=== PATIENT | female | born 1975 | race Caucasian/White ===

== ENCOUNTER 2020-03-12 12:35 | Outpatient (NON) | payer BC, SELFPAY ==
[2020-03-12 21:33] LABS: SARS-CoV-2 RNA PCR Positive
== END 2020-03-12 12:36 ==
LOC: ANHCOVIDDT 12:36
PROVIDERS: PCP Internal Medicine; Visit Provider Nurse Practitioner Family
DX: U07.1 COVID-19 (principal); R68.89 Other general symptoms and signs
CPT/HCPCS: 87635; C9803; U0003

== ENCOUNTER → 2020-07-12 10:36 | Outpatient (CLI) | payer BC, SELFPAY ==
--- NOTE | ~2020-07-12 | XR_ITS ---
EXAMINATION: XR chest 2V 07/12/2020 10:58 INDICATION: Chest pain PROCEDURE: 2 view chest COMPARISON: No prior studies for comparison. FINDINGS: The lungs are clear. The cardiomediastinal silhouette is within normal limits. There are no pleural effusions. There is no pneumothorax suspected. IMPRESSION: 1: NO ACUTE CARDIOPULMONARY DISEASE. Reviewed, dictated and finalized at location [facility].
== END ==
PROVIDERS: PCP Family Medicine; Visit Provider Nurse Practitioner Family
DX: R07.89 Other chest pain (principal)
CPT/HCPCS: 71046

== ENCOUNTER 2020-07-17 14:49 | Outpatient (CLI) | payer BC, SELFPAY ==
--- NOTE | 2020-07-20 12:32 | WPDHOLTEREM ---
Holter/Event Monitor Holter/Event Monitor Date of procedure: 07/17/20 Procedure Type: 48 hour holter monitor Indications: Palpitations Conclusion: 1. 48 hour holter monitor on 07/17/20. 2. Predominant rhythm is sinus rhythm. HR range 51-162 bpm; average HR 83 bpm. 3. There is 1 premature supraventricular complex. There is 1 atrial tachycardia at 160 bpm lasting 6 beats. 4. No premature ventricular complex. No ventricular tachycardia. 5. No sinoatrial or atrioventricular blocks. No significant pauses greater than 2 seconds. 6. No symptoms available for correlation.
== END 2020-07-17 14:50 | disposition home or self-care (01) ==
LOC: ANHCARD 14:50
PROVIDERS: PCP Family Medicine; Visit Provider Nurse Practitioner Family
DX: R00.2 Palpitations (principal); R00.0 Tachycardia, unspecified
CPT/HCPCS: 93225; 93226

== ENCOUNTER 2022-10-02 12:33 | Emergency (ER) | payer BC, SELFPAY ==
--- NOTE | ~2022-10-02 | CT_ITS ---
EXAMINATION: CT abdomen pelvis w con DATE: 10/02/2022 15:51 INDICATION: Right lower quadrant abdominal pain. Vomiting. TECHNIQUE: Computed tomography (CT) of the abdomen and pelvis was performed with 100 CC Omnipaque 350 intravenous contrast. Automated exposure control and iterative reconstruction technique were employe d. Exam dose: 1163.95 mGy-cm total exam DLP. COMPARISON: May 09, 2008 CT abdomen FINDINGS: There are clear. Normal heart size. No pericardial or pleural effusion. Small sliding hiatal hernia. There is a lap band. Approximately 1 cm lateral segment left hepatic cyst. Approximately 3.8 mm hypodensity of the right hepatic lobe lateral to the gallbladder, too small to d efinitively characterize but likely a small hepatic cyst a couple of even smaller probable hepatic cy sts are suggested. The gallbladder appears normal. No bile duct or pancreatic duct enlargement. No pancreatic mass lesio n or calcification. Normal splenic size. Normal morphology of the adrenal glands. A few benign-appearing renal cysts are noted, measuring up to 8 mm on the right and 19 mm on the left . No urinary tract calculus or hydroureteronephrosis. The urinary bladder appears normal. There is an I UD in expected position in the uterus. Approximately 3.1 x 4.7 cm multi septated left ovarian cyst and 1.5 x 3.7 cm left ovarian cyst. There is epiploic appendagitis near the junction of the descending and sigmoid colon in the left lowe r quadrant. There are multiple contiguous nondilated fluid containing small bowel segments without intervening fa t in the right lower quadrant, but no bowel obstruction or intraperitoneal free air is evident. Small fat-containing umbilical hernia. No suspicious osteolytic or osteoblastic lesions. IMPRESSION: Small sliding hiatal hernia Lap band Hepatic cysts Renal cysts Left ovarian cysts IUD within uterus Left colon epiploic appendagitis No bowel obstruction or intraperitoneal free air is detected Reviewed, dictated and finalized at [facility]. Reviewed, dictated and finalized at location [facility].
[2022-10-02 12:47] VITALS: BP 147/83; PULSE 68; RESP 20; TEMP 36.7; O2SAT 100
[2022-10-02 13:05] LABS: Basophils Percent Auto 0.5 % (0.2-1.2); Eosinophils Percent Auto 0.5 % (0-4.4); Hematocrit 42.4 % (37.0-47.0); Immature Granulocyte Absolute 0.03 K/mm3 (0.00-0.031); Immature Granulocyte Percent A 0.4 % (0-0.5); Lymphocytes Absolute Auto 2.28 K/mm3 (0.9-3.2); Lymphocytes Percent Auto 28.9 % (18.3-44.2); Mean Corpuscular Volume 93.8 fl (80-100); Mean Platelet Volume 9.9 fl (7.4-10.4); Monocytes Absolute Auto 0.4 K/mm3 (0.1-0.6); Monocytes Percent Auto 5.4 % (2.6-8.5); Neutrophils Absolute Auto 5.1 K/mm3 (1.3-6.7); Neutrophils Percent Auto 64.3 % (45.5-73.1); Platelet Count Result 303 k/mm3 (150-375); Red Blood Count 4.52 M/mm3 (4.2-5.4); Red Cell Distribution Width 12.9 % (11.5-14.5); White Blood Count 7.9 K/mm3 (4.5-10.0)
[2022-10-02 13:12] LABS: Alanine Aminotransferase 30 U/L (6-35); Albumin Level 4.3 g/dL (3.5-5.1); Alkaline Phosphatase 93 U/L (38-126); Anion Gap 4 mmol/L (8-16); Aspartate Amino Transferase 28 U/L (14-36); Bilirubin,Total 0.7 mg/dL (0.2-1.3); Blood Urea Nitrogen 8 mg/dL (7-17); Calcium 8.8 mg/dL (8.4-10.2); Carbon Dioxide 29 mmol/L (22-30); Chloride 103 mmol/L (98-107); Estimated CRCL calculation 100 ml/min; Estimated Glomerular Filt Rate > 60; Glucose 92 mg/dL (65-110); Lipase 44 U/L (23-300); Potassium 4.2 mmol/L (3.4-5.0); Sodium 136 mmol/L (137-145)
[2022-10-02 14:02] VITALS: BP 119/89; O2SAT 100
[2022-10-02 14:54] LABS: Appearance Urine Cloudy (Clear); Bacteria Urine 2+ /hpf; Bilirubin Urine Negative (Negative); Blood Urine Negative (Negative); Color Urine Yellow (Yellow); Glucose Urine UA Negative (Negative); Hyaline Casts Urine Present /lpf; Ketones Urine 2+ mg/dL (Negative); Leukocyte Esterase Ur Negative LEU/UL (Negative); Need Manual Microscopic Reviewed; Nitrate Urine Negative (Negative); Protein Urine Trace mg/dL (Negative); Specific Grav Ur 1.023 (1.001-1.035); Squamous Epithelial Cell Urine Few /hpf (Few)
[2022-10-02 15:01] VITALS: BP 136/59; O2SAT 100
[2022-10-02 15:06] LABS: Add Urine Microscopic? YES
[2022-10-02 15:16] VITALS: BP 134/77; O2SAT 100
--- NOTE | 2022-10-02 17:36 | ED.ABDPAIN ---
HPI - Abdominal Pain General Chief Complaint: Abdominal Pain Stated Complaint: lower abdominal pain Time Seen by Provider: 10/02/22 13:45 History of Present Illness HPI narrative: Patient is a 47-year-old female who presents ER with lower abdominal pain. Worsening over the last 3 days. Began around the periumbilical region and mid to lower abdomen. It is on both right and left side. Mild urinary frequency. No dysuria. No fevers or chills or sweats. She is without nausea or vomiting. Pain is worse with bending over and hitting bumps in the car. Patient does still have her appendix. Patient has been taking OTC pain relievers. Related Data Allergies Allergy/AdvReac Type Severity Reaction Status Date / Time No Known Allergies Allergy Verified 03/06/22 07:29 Review of Systems Review of Systems: All systems reviewed & are unremarkable except as noted in HPI and below Constitutional: Constitutional: Denies chills, Denies fatigue and Denies fever(s) Respiratory: Respiratory: Denies cough and Denies dyspnea Gastrointestinal: Gastrointestinal: Reports abdominal pain, Denies constipation, Denies diarrhea, Denies nausea and Denies vomiting Genitourinary: Genitourinary: Denies nocturia, Denies dysuria and Denies flank pain PMFSH Past Medical History Medical History (Updated 10/02/22 @ 21:43 by Reji Ornelas MD) BMI 35.0-35.9,adult GERD (gastroesophageal reflux disease) Surgical History Surgical History (Updated 10/02/22 @ 21:43 by Reji Ornelas MD) H/O rotator cuff surgery Hx of laparoscopic gastric banding Family History Family History Mother Patient's mother is in good health Father Emphysema lung Grandparent Hypertension Family history of primary malignant neoplasm of liver Family history of malignant neoplasm of uterus Family history of malignant neoplasm of ovary Sibling No problems noted. Social History Social History (Updated 03/06/22 @ 09:35 by Sylvia Lobato Gee) Smoking status: Never smoker Second hand tobacco smoke exposure: Yes Alcohol intake: current Substance use: never Substance use type: does not use Lack of Transportation: No Lack of Food: Never True Current Housing: I Have Housing Concerned About Future Housing: No Difficulty Paying Gas/Electric Bills: No Difficulty Paying for Meds: No Currently Unemployed: No Education: Associate Degree Difficulty w/ Childcare or Family Care: No Living arrangements: with family Occupation/Education: occupation Additional occupation/education comments: [employer] Gender identity (if verbalized by the patient): Female Exam Narrative: GENERAL: Well-appearing, well-nourished, and in no acute distress. HEAD: Normocephalic, atraumatic. ENT: Mucous membranes moist. NECK: Supple. CHEST: Clear to auscultation. No respiratory distress. HEART: Regular rate and rhythm. Normal peripheral pulses. ABDOMEN: Soft, bilateral lower quadrant tenderness without guarding right greater than left, nondistended. EXTREMITIES: Normal range of motion. No edema. SKIN: Warm, dry, no rash. NEURO: Alert and oriented x3. PSYCH: Normal mood and affect. Course Course Emergency Course: Patient resting comfortably. Informed of results. Discussed epiploic appendagitis as well as UTI. Vital Signs Vital signs: Vital Signs Temperature 98.1 F 10/02/22 12:47 Pulse Rate 68 10/02/22 12:47 Respiratory Rate 10/02/22 12:47 Blood Pressure 147/83 H 10/02/22 12:47 Pulse Oximetry 100 10/02/22 12:47 Oxygen Delivery Room Air 10/02/22 12:47 Temperature 98.1 F 10/02/22 12:47 Pulse Rate 68 10/02/22 12:47 Respiratory Rate 10/02/22 12:47 Blood Pressure 134/77 10/02/22 15:16 Pulse Oximetry 100 10/02/22 15:16 Oxygen Delivery Room Air 10/02/22 12:47 MDM - Abdominal Pain Lab Data 10/02
== END 2022-10-02 18:52 | disposition home or self-care (01) ==
PROVIDERS: Emergency Medicine; Emergency Provider Emergency Medicine; PCP Family Medicine
DX: K63.89 Other specified diseases of intestine (principal); N39.0 Urinary tract infection, site not specified
CPT/HCPCS: 36415; 74177; 80053; 81001; 81025; 83690; 85025; 87086; 99284; Q9967

== ENCOUNTER 2023-01-07 08:28 | Outpatient (CLI) | payer BC, SELFPAY ==
--- NOTE | 2023-01-26 08:57 | WPDHOMESLEEP ---
Sleep Study - Home Unattended Date of Study: 01/07/23 Ordering Provider: Efrain Dash MD Interpreting Provider: Chelle Brunner MD Home Sleep Study Type: Watch JUAN Height: 1.65 m Weight: 95.254 kg Body Mass Index: 34.9 Neck Circumference (inches): 15 [place]: 18 Reason for Sleep Study Excessive daytime sleepiness, snoring Sleep History Anisa Martínez is a 47-year-old female with history of depression and GERD who underwent a home sleep test for evaluation of snoring, daytime hypersomnia, morning headaches and fatigue. She rarely awakens from sleep short of breath. She never awakens at night with heartburn, belching or cough. She frequently snores and occasionally snores loudly enough that others complain. She occasionally has trouble sleeping when she has a cold. She never suddenly wakes up gasping for breath during the night. She never has breathing problems at night. She rarely sweats excessively at night. She rarely notices her heart pounding or beating irregularly during the night. She occasionally falls asleep during the day. She never falls asleep while driving. She never experiences loss of muscle tone with strong emotion. She occasionally has trouble at work because of sleepiness. She never feels paralyzed on waking or falling asleep. She never experiences vivid dreams upon waking or falling asleep. She does not feel afraid of going to sleep. She never has nightmares. She never recalls her dreams. She occasionally has thoughts racing through her mind. She occasionally feels sad or depressed. She occasionally feels anxiety or worry about things. She occasionally has muscular tension. She occasionally notices parts of her body jerk. She rarely kicks during the night. She frequently feels crawling or aching feelings in her legs. She frequently feels leg pain at night. She rarely grinds her teeth during sleep and never has morning jaw pain. She rarely feels bothered by pain during the day and is rarely awakened by pain during the night. She occasionally wakes up feeling stiff, sore, and achy in the morning. She rarely wakes with pain in her neck, spine, or joints. Normal bedtime is around 10 to 11pm on the weekdays and same on the weekends, taking 20 to 30 minutes to fall asleep. She typically gets about 6 to 7 hours of sleep per night. Her wake up time is around 6 to 7am on the weekdays and 7 to 8am on the weekends. She typically wakes up around 5 to 7 times per night, awake for a few minutes each time and she will roll over, go back to sleep. she generally does not take naps. A short nap lasting 10-15 minutes is not refreshing. Habits: Never tobacco smoker. Drinks about 32 oz caffeinated beverages per day. No alcohol or recreational substances. [facility] Past Medical History Medical History BMI 35.0-35.9,adult GERD (gastroesophageal reflux disease) Surgical History Surgical History H/O rotator cuff surgery Hx of laparoscopic gastric banding Family History Family History Mother Patient's mother is in good health Father Emphysema lung Grandparent Hypertension Family history of primary malignant neoplasm of liver Family history of malignant neoplasm of uterus Family history of malignant neoplasm of ovary Sibling No problems noted. Social History Social History Smoking status: Never smoker Second hand tobacco smoke exposure: Yes Alcohol intake: current Substance use: never Substance use type: does not use Lack of Transportation: No Lack of Food: Never True Current Housing: I Have Housing Concerned About Future Housing: No Difficulty Paying Gas/Electric Bills: No Difficulty Paying for Meds: No Currently Unemployed: No Education: Associate Degree Diff
[2023-01-26 09:13] VITALS: BMI 34.9
== END 2023-01-12 09:57 | disposition home or self-care (01) ==
LOC: ANHCSM 08:29
PROVIDERS: PCP Family Medicine; Visit Provider Family Medicine
DX: G47.30 Sleep apnea, unspecified (principal); G47.19 Other hypersomnia; G25.81 Restless legs syndrome; R06.83 Snoring
CPT/HCPCS: 95800